=== PATIENT | female | born 1955 | race Caucasian/White ===

== ENCOUNTER 2019-09-06 18:18 | Emergency (ER) | payer MEDICARE, MEDICAID ==
[~2019-09-06] VITALS: Ht 157.5 cm; Wt 79.3 kg
[2019-09-06 20:00] VITALS: BP 125/65
== END 2019-09-06 20:16 | disposition home or self-care (01) ==
LOC: ER 18:19
DX: M25.531 Pain in right wrist (principal); E78.00 Pure hypercholesterolemia, unspecified; Z88.5 Allergy status to narcotic agent; Z88.0 Allergy status to penicillin; Z88.8 Allergy status to other drugs, medicaments and biological substances
CPT/HCPCS: 29125; 73110; 99283

== ENCOUNTER 2020-02-27 05:27 | Day surgery (SDC) | payer MEDICARE, MEDICAID ==
[2020-02-19 11:43] LABS: BASOPHILS # (AUTO) 0.1 X10'3 (0-0.2); BASOPHILS % (AUTO) 0.9 % (0-1); EOSINOPHILS # (AUTO) 0.3 X10'3 (0-0.9); LYMPHOCYTES # (AUTO) 2.9 X10'3 (1.1-4.8); LYMPHOCYTES % (AUTO) 47.3 % (21-51); MEAN CORPUSCULAR HEMOGLOBIN 33.3 PG (27.0-31.0); MEAN CORPUSCULAR HGB CONC 34.3 g/dL (33.0-36.5); MEAN CORPUSCULAR VOLUME 97.1 FL (78-98); MEAN PLATELET VOLUME 7.1 FL (7.4-10.4); MONOCYTES # (AUTO) 0.4 X10'3 (0-0.9); MONOCYTES % (AUTO) 6.4 % (2-12); NEUTROPHILS # (AUTO) 2.4 X10'3 (1.8-7.7); NEUTROPHILS % (AUTO) 40.4 % (42-75); PRE OP HEMATOCRIT 41.7 % (35.0-45.0); PRE OP HEMOGLOBIN 14.3 g/dL (12.0-16.0); PRE OP PLATELET COUNT 200 X10'3 (140-440); RED BLOOD COUNT 4.29 X10'6 (4.20-5.60); RED CELL DISTRIBUTION WIDTH 12.4 % (11.5-14.5)
[2020-02-19 11:57] LABS: ALBUMIN 3.9 G/DL (3.4-5.0); ALBUMIN/GLOBULIN RATIO 1.1 (1.1-1.5); ALKALINE PHOSPHATASE 105 IU/L (46-116); BLOOD UREA NITROGEN 20 MG/DL (7-18); BUN/CREATININE RATIO 19.2 (6.6-38.0); CALCIUM 9.3 MG/DL (8.5-10.1); CHLORIDE 106 MMOL/L (99-107); CREATININE 1.04 MG/DL (0.40-0.90); PRE OP ALT 30 U/L (30-65); PRE OP ANION GAP 8 (8-16); PRE OP AST 13 U/L (10-37); PRE OP BILIRUB, TOTAL 0.4 MG/DL (0.0-1.0); PRE OP GLUCOSE 157 MG/DL (70-104); PRE OP POTASSIUM 4.5 MMOL/L (3.4-5.1); PRE OP SODIUM 142 MMOL/L (135-145); TOTAL CARBON DIOXIDE 27.8 MMOL/L (24-32); TOTAL PROTEIN 7.3 G/DL (6.4-8.2); eGFR 54 ML/MIN
[2020-02-27] VITALS (14 sets, daily range): BP systolic 115–148; BP diastolic 66–79
[~2020-02-27] VITALS: Ht 157.5 cm; Wt 80.3 kg
[~2020-02-27 05:27] MED LIST: ACET-1995 PO; ATOR40TA PO; GABA300C PO; METF1000 PO; MV-M1TAB19 PO; SERT100T10 PO; TRAZ150T78 PO; ringers solution, lacted 1,000 ML IV SCH
[2020-02-27] MEDS ORDERED: famotidine 20mg tablet PO ONE (05:30)
[2020-02-27] MEDS ORDERED: MESSAGE TO NURSING IV ONE (05:30)
[2020-02-27] MEDS ORDERED: LIDOcaine 1% (10mg/ml) 2ml vial ONE (05:45)
[2020-02-27] MEDS ORDERED: ceFAZolin 1GM/D5W- ADD-VANTAGE 50 ML IV ONE (06:10)
[2020-02-27] MEDS ORDERED: sevoflurane 250ml liquid IH ONE (07:32)
[2020-02-27] MEDS ORDERED: fentaNYL/PF 50MCG/1 ML 2ML syringe ONE (07:35)
[2020-02-27] MEDS ORDERED: MIDAZolam 5mg/5ml vial ONE (07:36)
[2020-02-27] MEDS ORDERED: propofol inj 20 ML IV ONE (07:37)
[2020-02-27] MEDS ORDERED: ROPIVAcaine 0.5% (5mg/ml) 30ml vial ONE (07:38)
[2020-02-27] MEDS ORDERED: morphine 2 MG/ML inj. syringe IV PRN (08:35)
[2020-02-27] MEDS ORDERED: ROPIVAcaine 0.2%/PF PUMP/bolus 550 ML POPLITEAL SCH (08:35)
[2020-02-27] MEDS ORDERED: ondansetron/PF 4mg/2ml inj IV PRN (08:35)
[2020-02-27] MEDS ORDERED: ringers solution, lacted 1,000 ML IV SCH (08:35)
[2020-02-27] MEDS ORDERED: meperidine/PF 25mg/ml syringe IV PRN ×3 (08:35)
[2020-02-27] MEDS ORDERED: proCHLORperazine 10 MG/2 ml inj IV PRN (08:35)
[2020-02-27] MEDS ORDERED: ROPIVAcaine 0.2% (10 MG/5 ML) BOLUS INJECTION POPLITEAL PRN (08:35)
[2020-02-27] MEDS ORDERED: morphine 4 MG/ML inj SYRINge IV PRN (08:35)
[2020-02-27] MEDS ORDERED: ePHEDrine 50MG/ML INJ. ONE (08:53)
--- NOTE | 2020-02-27 09:16 | NUR ---
RECEIVED FROM OR VIA [facility] ACCOMPANIED BY ANESTHESIOLOGIST DR TRAMMELL, REPORT GIVEN. PT DROWSY BUT AROUSES EASILY AND DENIES PAIN. 20 GAUGE PIV L FA PATENT AND RUNNING LR AT 100 ML/HR. R SHOULDER DRESSING CDI, COMPRISED OF 4X4 AND FOAM TAPE WITH SLING IN PLACE. PPULSES PRESENT, BRISK CAP REFILL, SKIN PINK AND WARM, PHAN WITH LIMITED MOBILITY TO RUE DT BLOCK, BLOCK CATHETER IN PLACE. ABD SOFT, VSS, PT RESTING COMFORTABLY.
[2020-02-27] MEDS ORDERED: HYDROcodone/acetaminophen 10/325mg tab PO PRN (09:35)
--- NOTE | 2020-02-27 11:26 | NUR ---
PT AWAKE, ALERT AND DENIES PAIN. 20 GAUGE PIV L FA DCD CATH TIP INTACT. R SHOULDER DRESSING CDI, COMPRISED OF 4X4 AND FOAM TAPE WITH SLING IN PLACE. PPULSES PRESENT, BRISK CAP REFILL, SKIN PINK AND WARM, PHAN WITH LIMITED MOBILITY TO RUE DT BLOCK, BLOCK CATHETER IN PLACE. ABD SOFT, VSS. PT TOLERATING FLUIDS, ABLE TO DRESS WITH MIN ASSIST, ABLE TO AMBULATE. DISCHARGE INSTRUCTIONS GIVEN AND PT VERBALIZED UNDERSTANDING. TRANSPORTED VIA WHEELCHAIR TO SIG OTHER IN PRIVATE VEHICLE TO HOME.
== END 2020-02-27 11:26 | disposition home or self-care (01) ==
LOC: PAS 05:27
PROVIDERS: ATTEND Orthopaedic Surgery
DX: M75.41 Impingement syndrome of right shoulder (principal); G56.81 Other specified mononeuropathies of right upper limb; M19.011 Primary osteoarthritis, right shoulder; E11.9 Type 2 diabetes mellitus without complications; K21.9 Gastro-esophageal reflux disease without esophagitis; G47.30 Sleep apnea, unspecified; G43.909 Migraine, unspecified, not intractable, without status migrainosus; J45.909 Unspecified asthma, uncomplicated; F32.9 Major depressive disorder, single episode, unspecified; Z79.899 Other long term (current) drug therapy; Z20.828 Contact with and (suspected) exposure to other viral communicable diseases; Z90.710 Acquired absence of both cervix and uterus; Z87.891 Personal history of nicotine dependence; Z86.711 Personal history of pulmonary embolism; Z86.718 Personal history of other venous thrombosis and embolism; Z88.0 Allergy status to penicillin; Z88.2 Allergy status to sulfonamides; Z88.8 Allergy status to other drugs, medicaments and biological substances; Z79.84 Long term (current) use of oral hypoglycemic drugs; Z79.82 Long term (current) use of aspirin; Z72.89 Other problems related to lifestyle; Z82.3 Family history of stroke; Z82.49 Family history of ischemic heart disease and other diseases of the circulatory system
CPT/HCPCS: 29823; 36415; 64416; 64708; 76937; 80053; 82948; 85025; 87635; 93005; J2001; J2250; J2704; J2795; J3010; J7120; A4565; A4618; A6449; A7000

== ENCOUNTER 2020-06-18 19:09 | Emergency (ER) | payer BC, MEDICAID ==
[~2020-06-18] VITALS: Ht 157.5 cm; Wt 81.9 kg
[~2020-06-18 19:09] MED LIST changes: +SERT-434 PO; -SERT100T10 PO; -ringers solution, lacted 1,000 ML IV SCH
[2020-06-18 20:17] LABS: BASOPHILS # (AUTO) 0.1 X10'3 (0-0.2); BASOPHILS % (AUTO) 0.9 % (0-1); EOSINOPHILS # (AUTO) 0.6 X10'3 (0-0.9); EOSINOPHILS % (AUTO) 7.9 % (0-6); HEMATOCRIT 43.9 % (35.0-45.0); LYMPHOCYTES # (AUTO) 3.6 X10'3 (1.1-4.8); LYMPHOCYTES % (AUTO) 43.5 % (21-51); MEAN CORPUSCULAR HEMOGLOBIN 32.8 PG (27.0-31.0); MEAN CORPUSCULAR HGB CONC 34.1 g/dL (33.0-36.5); MEAN CORPUSCULAR VOLUME 96.3 FL (78-98); MONOCYTES # (AUTO) 0.5 X10'3 (0-0.9); MONOCYTES % (AUTO) 6.4 % (2-12); NEUTROPHILS # (AUTO) 3.4 X10'3 (1.8-7.7); NEUTROPHILS % (AUTO) 41.3 % (42-75); PLATELET COUNT 211 X10'3 (140-440); RED BLOOD COUNT 4.56 X10'6 (4.20-5.60); RED CELL DISTRIBUTION WIDTH 12.7 % (11.5-14.5); WHITE BLOOD COUNT 8.2 X10'3 (4.5-11.0)
[2020-06-18 20:30] LABS: ALANINE AMINOTRANSFERASE 32 U/L (12-78); ALBUMIN/GLOBULIN RATIO 1.1 (1.1-1.5); ALKALINE PHOSPHATASE 127 IU/L (46-116); ANION GAP 7 (8-16); ASPARTATE AMINO TRANSFERASE 15 U/L (10-37); BILIRUBIN,TOTAL 0.3 MG/DL (0.1-1.0); BLOOD UREA NITROGEN 24 MG/DL (7-18); BUN/CREATININE RATIO 23.3 (6.6-38.0); CALCIUM 9.9 MG/DL (8.5-10.1); CHLORIDE 108 MMOL/L (99-107); CREATININE 1.03 MG/DL (0.40-0.90); GLUCOSE 134 MG/DL (70-104); POTASSIUM 4.7 MMOL/L (3.5-5.1); SODIUM 144 MMOL/L (135-145); TOTAL CARBON DIOXIDE 29.5 MMOL/L (24-32); TOTAL PROTEIN 7.6 G/DL (6.4-8.2); eGFR 54 ML/MIN
[2020-06-18 20:37] LABS: TROPONIN I < 0.04 NG/ML (0.0-0.05)
[2020-06-18 20:53] VITALS: BP 119/67
== END 2020-06-18 21:02 | disposition home or self-care (01) ==
LOC: ER 19:10
DX: R53.1 Weakness (principal); R25.2 Cramp and spasm; M54.5 Low back pain; R10.30 Lower abdominal pain, unspecified; M79.7 Fibromyalgia; E78.00 Pure hypercholesterolemia, unspecified; E11.9 Type 2 diabetes mellitus without complications; Z88.0 Allergy status to penicillin; Z88.6 Allergy status to analgesic agent; Z88.2 Allergy status to sulfonamides; Z88.8 Allergy status to other drugs, medicaments and biological substances; Z79.899 Other long term (current) drug therapy
CPT/HCPCS: 36415; 71045; 80053; 83735; 83880; 84484; 85025; 93005; 99285

== ENCOUNTER 2020-08-09 05:35 | Day surgery (SDC) | payer BC, MEDICAID ==
[2020-08-01 13:49] LABS: BASOPHILS # (AUTO) 0.1 X10'3 (0-0.2); BASOPHILS % (AUTO) 1.2 % (0-1); EOSINOPHILS # (AUTO) 0.5 X10'3 (0-0.9); EOSINOPHILS % (AUTO) 8.4 % (0-6); LYMPHOCYTES # (AUTO) 2.1 X10'3 (1.1-4.8); LYMPHOCYTES % (AUTO) 33.2 % (21-51); MEAN CORPUSCULAR HGB CONC 33.8 g/dL (33.0-36.5); MEAN CORPUSCULAR VOLUME 97.8 FL (78-98); MEAN PLATELET VOLUME 6.8 FL (7.4-10.4); MONOCYTES # (AUTO) 0.4 X10'3 (0-0.9); MONOCYTES % (AUTO) 5.9 % (2-12); NEUTROPHILS # (AUTO) 3.3 X10'3 (1.8-7.7); NEUTROPHILS % (AUTO) 51.3 % (42-75); PRE OP HEMATOCRIT 41.4 % (35.0-45.0); PRE OP PLATELET COUNT 212 X10'3 (140-440); RED BLOOD COUNT 4.24 X10'6 (4.20-5.60); RED CELL DISTRIBUTION WIDTH 12.9 % (11.5-14.5)
[2020-08-01 14:05] LABS: ALBUMIN 3.6 G/DL (3.4-5.0); ALBUMIN/GLOBULIN RATIO 1.1 (1.1-1.5); ALKALINE PHOSPHATASE 132 IU/L (46-116); BLOOD UREA NITROGEN 24 MG/DL (7-18); BUN/CREATININE RATIO 23.1 (6.6-38.0); CALCIUM 9.5 MG/DL (8.5-10.1); CHLORIDE 108 MMOL/L (99-107); CREATININE 1.04 MG/DL (0.40-0.90); PRE OP ALT 28 U/L (30-65); PRE OP ANION GAP 8 (8-16); PRE OP AST 16 U/L (10-37); PRE OP BILIRUB, TOTAL 0.2 MG/DL (0.0-1.0); PRE OP POTASSIUM 4.2 MMOL/L (3.4-5.1); PRE OP SODIUM 145 MMOL/L (135-145); TOTAL CARBON DIOXIDE 28.8 MMOL/L (24-32); eGFR 54 ML/MIN
[2020-08-01 14:07] LABS: PRE OP GLUCOSE 224 MG/DL (70-104)
[~2020-08-09] VITALS: Ht 157.5 cm; Wt 83.2 kg
[~2020-08-09 05:35] MED LIST changes: -ACET-1995 PO; +ASPI-611 PO; +LITH300C PO; +cefazolin/dext.iso 2gm/100ml IV ONE; +clindamycin-Cleocin 900mg/D5W 50 ML IV ONE; +famotidine 20mg tablet PO ONE; +ringers solution, lacted 1,000 ML IV SCH
[2020-08-09 05:40] VITALS: BP 137/70
[2020-08-09] MEDS ORDERED: LIDOcaine 1% (10mg/ml) 2ml vial ONE (05:58)
[2020-08-09] MEDS ORDERED: BUPIVAcaine/PF 2.5 mg/ml (0.25%) 30ml vial ONE (06:38)
[2020-08-09] MEDS ORDERED: LIDOcaine 0.5% (5mg/ml) 50ml vial ONE (07:13)
[2020-08-09] MEDS ORDERED: fentaNYL/PF 50MCG/1 ML 2ML syringe ONE (07:16)
[2020-08-09] MEDS ORDERED: midazolam 1 mg/ML 2ml injection ONE (07:18)
[2020-08-09] MEDS ORDERED: propofol inj 20 ML IV ONE (07:57)
[2020-08-09 08:01] VITALS: BP 135/114
--- NOTE | 2020-08-09 08:01 | NUR ---
Received from OR via [facility] , accompanied by Anesthesiologist YVES and report given by Anesthesiolgist. PATIENT WITH 20G PIV IN LEFT UE RUNNING LR AT 100. DENIES PAIN. VSS Addendum: 08/09/20 at 0816 by Edward Medina RN, RN Amended: Links added.
[2020-08-09] MEDS ORDERED: ringers solution, lacted 1,000 ML IV SCH (08:05)
[2020-08-09] MEDS ORDERED: ondansetron/PF 4mg/2ml inj IV PRN (08:05)
[2020-08-09] MEDS ORDERED: fentaNYL/PF 50MCG/1 ML 2ML syringe IV PRN ×2 (08:05)
[2020-08-09 08:10] VITALS: BP 141/73
[2020-08-09 08:20] VITALS: BP 143/77
[2020-08-09 08:30] VITALS: BP 138/77
--- NOTE | 2020-08-09 08:41 | NUR ---
ALL DC CRITERIA HAS BEEN MET. HEAVILY ENCOURAGE USE OF CPAP FOR NEXT 24 HOURS AFTER SURGERY. PATIENT STATES THAT SHE WILL USE IT. PATIENT OUT VAI WHEELCHAIR TO PERSONAL VEHICLE WHERE SIG OTHER ALMAZ PRESENT TO TAKE HER HOME. PAIN AT A 3. PATIENT STATES THAT SHE WILL TAKE SOMETHING FOR PAIN AT HOME. VSS. AMBULATED AND VOIDED PRIOR TO DC. DRESSING TO WRIST IS CDI AND ICE SENT WITH PATIENT. ALL DC CRITERIA HAS BEEN MET. Addendum: 08/09/20 at 0856 by Edward Wagner - SURAJ RUELAS Amended: Links added.
== END 2020-08-09 08:41 | disposition home or self-care (01) ==
LOC: PAS 05:35
PROVIDERS: ATTEND Orthopaedic Surgery Hand Surgery
DX: G56.01 Carpal tunnel syndrome, right upper limb (principal); S63.591A Other specified sprain of right wrist, initial encounter; M65.841 Other synovitis and tenosynovitis, right hand; J45.909 Unspecified asthma, uncomplicated; G43.909 Migraine, unspecified, not intractable, without status migrainosus; F32.9 Major depressive disorder, single episode, unspecified; E66.9 Obesity, unspecified; Z68.33 Body mass index [BMI] 33.0-33.9, adult; E11.9 Type 2 diabetes mellitus without complications; G89.4 Chronic pain syndrome; M19.011 Primary osteoarthritis, right shoulder; Z86.718 Personal history of other venous thrombosis and embolism; Z86.711 Personal history of pulmonary embolism; Z88.0 Allergy status to penicillin; Z88.5 Allergy status to narcotic agent; Z88.2 Allergy status to sulfonamides; Z72.89 Other problems related to lifestyle; Z79.84 Long term (current) use of oral hypoglycemic drugs; Z79.899 Other long term (current) drug therapy; Z79.82 Long term (current) use of aspirin; Z20.822 Contact with and (suspected) exposure to COVID-19; Z98.890 Other specified postprocedural states; Z90.710 Acquired absence of both cervix and uterus; Z90.49 Acquired absence of other specified parts of digestive tract; Z87.891 Personal history of nicotine dependence; Z83.3 Family history of diabetes mellitus; Z82.3 Family history of stroke; Z82.49 Family history of ischemic heart disease and other diseases of the circulatory system; Z80.9 Family history of malignant neoplasm, unspecified; X58.XXXA Exposure to other specified factors, initial encounter; Y93.89 Activity, other specified; Y92.89 Other specified places as the place of occurrence of the external cause; Y99.8 Other external cause status
CPT/HCPCS: 29846; 36415; 64721; 80053; 82948; 85025; J2001; J2250; J2704; J3010; J3490; J7120; U0003; U0005; A4215; A4618; A6449; A7000

== ENCOUNTER 2020-10-01 17:01 | Emergency (ER) | payer BC, MEDICAID ==
[~2020-10-01] VITALS: Ht 157.5 cm; Wt 81.7 kg
[~2020-10-01 17:01] MED LIST changes: -cefazolin/dext.iso 2gm/100ml IV ONE; -clindamycin-Cleocin 900mg/D5W 50 ML IV ONE; -famotidine 20mg tablet PO ONE; -ringers solution, lacted 1,000 ML IV SCH
[2020-10-01] MEDS ORDERED: diphenhydrAMINE 50 mg/ml inj IM ONE (21:45)
[2020-10-01] MEDS ORDERED: LORazepam 1 MG tablet PO ONE (21:45)
[2020-10-01] MEDS ORDERED: haloperidol lactate 5mg/ml inj IM ONE (21:45)
[2020-10-01] MEDS ORDERED: ketorolac trometh. 30mg/ml inj. IV ONE (21:45)
[2020-10-01 23:00] VITALS: BP 152/78
== END 2020-10-01 23:26 | disposition home or self-care (01) ==
LOC: ER 17:02
DX: G43.909 Migraine, unspecified, not intractable, without status migrainosus (principal); R11.0 Nausea; E78.00 Pure hypercholesterolemia, unspecified; E11.9 Type 2 diabetes mellitus without complications; M79.7 Fibromyalgia; Z79.82 Long term (current) use of aspirin; Z79.899 Other long term (current) drug therapy; Z88.0 Allergy status to penicillin; Z88.1 Allergy status to other antibiotic agents; Z88.2 Allergy status to sulfonamides; Z88.8 Allergy status to other drugs, medicaments and biological substances
CPT/HCPCS: 70450; 96372; 96374; 99285; J1200; J1630; J1885

== ENCOUNTER 2023-01-15 18:15 | Emergency (ER) | payer BC, MEDICAID ==
[~2023-01-15] VITALS: Ht 157.5 cm; Wt 79.4 kg
[2023-01-15] MEDS ORDERED: APIX5TAB5 PO (22:22)
[2023-01-15] MEDS ORDERED: TOPI-253 PO (22:22)
[2023-01-15] MEDS ORDERED: TRAM50TA2 PO (22:39)
[2023-01-15] MEDS ORDERED: traMADol 50MG tablet PO ONE (22:40)
--- NOTE | 2023-01-15 22:53 | NUR ---
COMPLAINTS COORDINATOR FINISHED AT BEDSIDE
[2023-01-15 23:27] VITALS: BP 152/99; PULSE 67; RESP 16; TEMP 98.1; O2SAT 95
== END 2023-01-15 23:28 | disposition home or self-care (01) ==
LOC: ER 20:36
DX: M25.552 Pain in left hip (principal); I82.402 Acute embolism and thrombosis of unspecified deep veins of left lower extremity; E78.00 Pure hypercholesterolemia, unspecified; E11.9 Type 2 diabetes mellitus without complications; Z88.5 Allergy status to narcotic agent; Z88.2 Allergy status to sulfonamides; Z88.8 Allergy status to other drugs, medicaments and biological substances; Z79.899 Other long term (current) drug therapy
CPT/HCPCS: 93971; 99284

== ENCOUNTER 2023-01-27 17:27 | Emergency (ER) | payer BC, MEDICAID ==
[~2023-01-27] VITALS: Ht 157.5 cm; Wt 79.5 kg
[~2023-01-27 17:27] MED LIST changes: +APIX5TAB5 PO; -ASPI-611 PO; -LITH300C PO; -METF1000 PO; -MV-M1TAB19 PO; +TOPI-253 PO; +TRAM50TA2 PO
[2023-01-27 18:12] VITALS: TEMP 96.9
[2023-01-27 18:57] LABS: BILIRUBIN,URINE NEGATIVE (Neg); CLARITY,URINE CLEAR (Clear); COLOR,URINE YELLOW (Yellow); GLUCOSE, URINE >=1000 mg/dl (Neg); KETONES,URINE NEGATIVE (Neg); LEUKOCYTE ESTERASE ,URINE NEGATIVE (Neg); NITRITES, URINE NEGATIVE (Neg); OCCULT BLOOD,URINE NEGATIVE (Neg); PH,URINE 7.5 (4.8-8.0); PROTEIN,URINE NEGATIVE (Neg); UROBILINOGEN,URINE 0.2 E.U/dL (0.2-1.0)
[2023-01-27 19:10] LABS: UA COLLECTION TYPE CLN CATCH MIDSTREAM
[2023-01-27 19:22] LABS: BACTERIA,URINE FEW /HPF (Neg); MUCUS STRANDS NONE SEEN /LPF (Neg); RBC,URINE 0-2 /HPF (0-2); SQUAMOUS EPITHELIAL CELL,UR FEW /LPF (FEW); WBC,URINE 0-4 /HPF (0-4)
[2023-01-27 19:32] LABS: MEAN CORPUSCULAR HEMOGLOBIN 32.7 PG (27.0-31.0)
[2023-01-27 19:34] LABS: BASOPHILS # (AUTO) 0.1 X10'3 (0-0.2); EOSINOPHILS # (AUTO) 0.2 X10'3 (0-0.9); EOSINOPHILS % (AUTO) 3.4 % (0-6); HEMATOCRIT 42.9 % (35.0-45.0); HEMOGLOBIN 14.7 g/dl (12.0-16.0); LYMPHOCYTES # (AUTO) 2.8 X10'3 (1.1-4.8); MEAN CORPUSCULAR HGB CONC 34.2 g/dL (33.0-36.5); MEAN CORPUSCULAR VOLUME 95.7 FL (78-98); MEAN PLATELET VOLUME 7.2 FL (7.4-10.4); MONOCYTES # (AUTO) 0.4 X10'3 (0-0.9); MONOCYTES % (AUTO) 5.7 % (2-12); NEUTROPHILS # (AUTO) 3.2 X10'3 (1.8-7.7); NEUTROPHILS % (AUTO) 47.9 % (42-75); PLATELET COUNT 178 X10'3 (140-440); RED BLOOD COUNT 4.48 X10'6 (4.20-5.60); RED CELL DISTRIBUTION WIDTH 13.2 % (11.5-14.5); WHITE BLOOD COUNT 6.8 X10'3 (4.5-11.0)
[2023-01-27 19:44] LABS: ALANINE AMINOTRANSFERASE 26 U/L (12-78); ALBUMIN 3.9 G/DL (3.4-5.0); ALBUMIN/GLOBULIN RATIO 1.1 (1.1-1.5); ALKALINE PHOSPHATASE 134 IU/L (46-116); ANION GAP 10 (8-16); ASPARTATE AMINO TRANSFERASE 10 U/L (10-37); BILIRUBIN,TOTAL 0.3 MG/DL (0.1-1.0); BLOOD UREA NITROGEN 24 MG/DL (7-18); BUN/CREATININE RATIO 21.6 (10.0-20.0); CALCIUM 9.7 MG/DL (8.5-10.1); CHLORIDE 106 MMOL/L (99-107); CREATININE 1.11 MG/DL (0.40-0.90); GLUCOSE 226 MG/DL (70-104); POTASSIUM 4.5 MMOL/L (3.5-5.1); SODIUM 138 MMOL/L (135-145); TOTAL CARBON DIOXIDE 22.3 MMOL/L (24-32); TOTAL PROTEIN 7.5 G/DL (6.4-8.2); eCRCL 40 ML/MIN; eGFR 49 ML/MIN
[2023-01-28 03:08] VITALS: RESP 18
[2023-01-28 04:14] VITALS: BP 134/76; PULSE 69; O2SAT 98
--- NOTE | 2023-01-28 04:14 | NUR ---
pt is a&o x4, ambulatory, VSS. Per ok to discharge pt. Pt left unit ambulatory c discharge instructions
== END 2023-01-28 04:17 | disposition home or self-care (01) ==
LOC: ER 17:29
DX: E11.65 Type 2 diabetes mellitus with hyperglycemia (principal)
CPT/HCPCS: 80053; 81001; 82948; 85025; 99283

== ENCOUNTER 2023-11-25 18:46 | Emergency (ER) | payer BC, MEDICAID ==
[~2023-11-25] VITALS: Ht 157.5 cm; Wt 73.2 kg
[~2023-11-25 18:46] MED LIST changes: -TOPI-253 PO; +TOPI-95 PO; -TRAM50TA2 PO
[2023-11-25 20:46] LABS: BASOPHILS % (AUTO) 0.7 % (0-1); EOSINOPHILS # (AUTO) 0.2 X10'3 (0-0.9); EOSINOPHILS % (AUTO) 3.6 % (0-6); HEMATOCRIT 44.5 % (35.0-45.0); HEMOGLOBIN 15.1 g/dl (12.0-16.0); LYMPHOCYTES # (AUTO) 2.8 X10'3 (1.1-4.8); LYMPHOCYTES % (AUTO) 45.2 % (21-51); MEAN CORPUSCULAR HEMOGLOBIN 33.3 PG (27.0-31.0); MEAN CORPUSCULAR VOLUME 97.8 FL (78-98); MEAN PLATELET VOLUME 6.9 FL (7.4-10.4); MONOCYTES # (AUTO) 0.4 X10'3 (0-0.9); MONOCYTES % (AUTO) 6.8 % (2-12); NEUTROPHILS # (AUTO) 2.7 X10'3 (1.8-7.7); NEUTROPHILS % (AUTO) 43.7 % (42-75); PLATELET COUNT 195 X10'3 (140-440); RED BLOOD COUNT 4.55 X10'6 (4.20-5.60); RED CELL DISTRIBUTION WIDTH 13.2 % (11.5-14.5); WHITE BLOOD COUNT 6.1 X10'3 (4.5-11.0)
[2023-11-25 21:05] LABS: ANION GAP 7 (8-16); BLOOD UREA NITROGEN 18 MG/DL (7-18); BUN/CREATININE RATIO 16.8 (10.0-20.0); CALCIUM 9.6 MG/DL (8.5-10.1); CHLORIDE 106 MMOL/L (99-107); CREATININE 1.07 MG/DL (0.40-0.90); GLUCOSE 94 MG/DL (70-104); POTASSIUM 4.4 MMOL/L (3.5-5.1); PRO BRAIN NATRIURETIC PEPTIDE < 30 PG/ML (0-125); SODIUM 142 MMOL/L (135-145); TOTAL CARBON DIOXIDE 29.1 MMOL/L (24-32); eCRCL 41 ML/MIN; eGFR 51 ML/MIN
[2023-11-25] MEDS ORDERED: MECL-302 PO (21:29)
[2023-11-25 22:14] VITALS: BP 108/66; PULSE 71; RESP 16; TEMP 98.3; O2SAT 99
== END 2023-11-25 22:15 | disposition home or self-care (01) ==
LOC: ER 18:47
DX: R42 Dizziness and giddiness (principal); E78.00 Pure hypercholesterolemia, unspecified; E11.9 Type 2 diabetes mellitus without complications; M79.7 Fibromyalgia; Z20.822 Contact with and (suspected) exposure to COVID-19; Z88.8 Allergy status to other drugs, medicaments and biological substances; Z88.0 Allergy status to penicillin; Z79.899 Other long term (current) drug therapy; Z98.890 Other specified postprocedural states; Z86.711 Personal history of pulmonary embolism
CPT/HCPCS: 36415; 71045; 80048; 82948; 83880; 84484; 85025; 87811; 93005; 99285